=== PATIENT | female | born 2005 | race Two or more races ===

== ENCOUNTER 2025-08-19 11:54 | Outpatient (CLI) | payer OTHER | END 2025-08-19 12:04 | disposition home or self-care (01) | LOC: PRENATAL 11:54 | DX: O44.00 Complete placenta previa NOS or without hemorrhage, unspecified trimester (principal); O36.8130 Decreased fetal movements, third trimester, not applicable or unspecified; Z3A.27 27 weeks gestation of pregnancy ==

== ENCOUNTER 2025-09-30 07:36 | Outpatient (CLI) | payer OTHER | END 2025-09-30 07:37 | disposition home or self-care (01) | LOC: PRENATAL 07:36 | PROVIDERS: ATTEND Obstetrics & Gynecology Maternal & Fetal Medicine | DX: O26.843 Uterine size-date discrepancy, third trimester (principal); O99.013 Anemia complicating pregnancy, third trimester; Z3A.34 34 weeks gestation of pregnancy ==